=== PATIENT | male | born 1985 | race Caucasian/White ===

== ENCOUNTER 2016-10-20 15:33 | Emergency (ER) | payer OTHER ==
[~2016-10-20] VITALS: Ht 177.8 cm; Wt 82.0 kg
[2016-10-20 15:41] VITALS: BP 124/74; PULSE 87; RESP 18; TEMP 98.3; O2SAT 98
--- NOTE | 2016-10-20 16:26 | PD ---
HPI Chief Complaint: Psychiatric Symptoms Time Seen by Provider: 15:44 Travel History International Travel<30 days: No Contact w/Intl Traveler<30days: No Traveled to known affect area: No History of Present Illness HPI This is a 30-year-old male who presents to the emergency department under a [place] act because he had a violent outburst this morning hitting a window with his right arm. He sustained a laceration to his right forearm, bleeding, severe , constant. He also made some suicidal statements yesterday to his girlfriend. He evidently per the [place] act is supposed to be on psychiatric medications but isn't taking them currently. The patient denies any suicidal or homicidal ideations. He does acknowledge that he got in an argument with his girlfriend this morning and acted out. [facility] Past Medical History Anxiety: Yes Immunizations Current: No Social History Alcohol Use: No Tobacco Use: Yes (PACK A DAY ) Substance Use: Yes (meth ) Allergies-Medications (Allergen,Severity, Reaction): Coded Allergies: No Known Allergies (Verified , 10/20/16) Reported Meds & Prescriptions Reported Meds & Active Scripts Active No Active Prescriptions or Reported Medications Review of Systems Except as stated in HPI: all other systems reviewed are Neg Physical Exam Narrative GENERAL:Well appearing, no acute distress SKIN: 4 cm linear laceration along the volar aspect of the right forearm HEAD: Atraumatic. Normocephalic. EYES: Pupils equal and round. No injection or drainage. ENT: Moist mucous membranes NECK: Trachea midline. CARDIOVASCULAR: Regular rate and rhythm. No murmur appreciated. 2+ right radial pulse and right ulnar pulse with normal capillary refill in the hand. RESPIRATORY: Clear to auscultation. Breath sounds equal bilaterally. GASTROINTESTINAL: Abdomen soft, non-tender, nondistended. MUSCULOSKELETAL: No obvious deformities. NEUROLOGICAL: Awake and alert. No obvious cranial nerve deficits. Sensation and motor intact in the median, ulnar and radial distributions of the right hand. PSYCHIATRIC: Appropriate mood and affect; insight and judgment normal. Data Data Last Documented VS Vital Signs Date Time Temp Pulse Resp B/P Pulse Ox O2 Delivery O2 Flow Rate FiO2 10/20/16 15:41 98.3 87 18 124/74 98 Orders Complete Blood Count With Diff (10/20/16 16:07) Comprehensive Metabolic Panel (10/20/16 16:07) Alcohol (Ethanol) (10/20/16 16:07) Drug Screen, Random Urine (10/20/16 16:07) Forearm (2vws) (10/20/16 ) Labs Laboratory Tests Test 10/20/16 16:00 White Blood Count 5.6 TH/MM3 Red Blood Count 4.95 MIL/MM3 Hemoglobin 15.2 GM/DL Hematocrit 43.9 % Mean Corpuscular Volume 88.7 FL Mean Corpuscular Hemoglobin 30.7 PG Mean Corpuscular Hemoglobin 34.6 % Concent Red Cell Distribution Width 12.5 % Platelet Count 220 TH/MM3 Mean Platelet Volume 8.3 FL Neutrophils (%) (Auto) 49.4 % Lymphocytes (%) (Auto) 36.3 % Monocytes (%) (Auto) 8.6 % Eosinophils (%) (Auto) 5.0 % Basophils (%) (Auto) 0.7 % Neutrophils # (Auto) 2.7 TH/MM3 Lymphocytes # (Auto) 2.0 TH/MM3 Monocytes # (Auto) 0.5 TH/MM3 Eosinophils # (Auto) 0.3 TH/MM3 Basophils # (Auto) 0.0 TH/MM3 CBC Comment DIFF FINAL Differential Comment MDM Medical Decision Making Medical Screen Exam Complete: Yes Emergency Medical Condition: Yes Differential Diagnosis Psychosis, depression, anxiety, personality disorder Narrative Course This is a 30-year-old male who presents to the emergency department having gotten aggressive this morning and broke and a window pane lacerating his right wrist. He is under a [place] act as he evidently has a history of mental illness and is off of his medications. X-ray was obtained to rule out foreign body in the forearm. Wrist laceration will be repaired. He has strong palpable radial and ulnar pulses with a normal neuro exam of the right hand. I think patient is medically clear for psychiatric evaluation. Scripts No Active Prescriptions or Reported Meds Jackie Pimentel MD Oct 20, 2016 16:26
[2016-10-20 16:29] LABS: AUTOMATED NEUTROPHIL # 2.7 TH/MM3 (1.8-7.7); BASOPHIL % 0.7 % (0.0-2.0); EOSINOPHIL # 0.3 TH/MM3 (0-0.4); HEMATOCRIT 43.9 % (39.0-51.0); HEMO FLAGS DIFF FINAL; LYMPH % 36.3 % (9.0-44.0); MEAN CELL VOLUME 88.7 FL (80.0-100.0); MEAN CORPUSCULAR HEMOGLOBIN 30.7 PG (27.0-34.0); MEAN CORPUSCULAR HGB CONC 34.6 % (32.0-36.0); MONO % 8.6 % (0.0-8.0); NEUT % 49.4 % (16.0-70.0); PLATELET COUNT 220 TH/MM3 (150-450); RED BLOOD COUNT 4.95 MIL/MM3 (4.50-5.90); RED CELL DISTRIBUTION WIDTH 12.5 % (11.6-17.2); WHITE BLOOD COUNT 5.6 TH/MM3 (4.0-11.0)
--- NOTE | 2016-10-20 16:48 | RADRPT ---
EXAM DATE/TIME: 10/20/2016 16:17 [facility] COMPARISON: No previous studies available for comparison. INDICATIONS : Punched right forearm through window today. MEDICAL HISTORY : None. SURGICAL HISTORY : None. ENCOUNTER: Initial ACUITY: 1 day PAIN SCORE: 6/10 LOCATION: Right distal back of wrist laceration FINDINGS: Two view examination of the right forearm demonstrates no evidence of fracture or dislocation. Soft t issue injury with swelling is identified the distal form. There is no evidence of radiopaque foreign body. CONCLUSION: Soft tissue swelling without evidence of fracture or radiopaque foreign body. Eladio Elizabeth MD on October 20, 2016 at 16:46 Board Certified Radiologist. This report was verified electronically.
[2016-10-20 17:07] LABS: ALT (GPT) 35 U/L (12-78); ANION GAP 6 MEQ/L (5-15); AST (GOT) 19 U/L (15-37); BICARBONATE 29.8 MEQ/L (21.0-32.0); BLOOD UREA NITROGEN 8 MG/DL (7-18); CHLORIDE 104 MEQ/L (98-107); GLOMERULAR FILTRATION RATE 102 ML/MIN (>89); POTASSIUM 3.9 MEQ/L (3.5-5.1); SODIUM (NA) 140 MEQ/L (136-145)
[2016-10-20 17:09] LABS: ALKALINE PHOSPHATASE 57 U/L (45-117); TOTAL BILIRUBIN ADULT 0.7 MG/DL (0.2-1.0)
[2016-10-20 17:20] LABS: ALCOHOL LESS THAN 3 MG/DL (0-5)
--- NOTE | 2016-10-20 17:47 | PD ---
Physical Exam Time Seen by Provider: 17:46 Narrative I was asked by Dr. Pimentel to repair the laceration to the volar aspect of the right wrist. Data Data Last Documented VS Vital Signs Date Time Temp Pulse Resp B/P Pulse Ox O2 Delivery O2 Flow Rate FiO2 10/20/16 15:41 98.3 87 18 124/74 98 Orders Complete Blood Count With Diff (10/20/16 16:07) Comprehensive Metabolic Panel (10/20/16 16:07) Alcohol (Ethanol) (10/20/16 16:07) Drug Screen, Random Urine (10/20/16 16:07) Forearm (2vws) (10/20/16 ) Psych Screen (10/20/16 16:58) Labs Laboratory Tests Test 10/20/16 10/20/16 16:00 16:30 White Blood Count 5.6 TH/MM3 Red Blood Count 4.95 MIL/MM3 Hemoglobin 15.2 GM/DL Hematocrit 43.9 % Mean Corpuscular Volume 88.7 FL Mean Corpuscular Hemoglobin 30.7 PG Mean Corpuscular Hemoglobin 34.6 % Concent Red Cell Distribution Width 12.5 % Platelet Count 220 TH/MM3 Mean Platelet Volume 8.3 FL Neutrophils (%) (Auto) 49.4 % Lymphocytes (%) (Auto) 36.3 % Monocytes (%) (Auto) 8.6 % Eosinophils (%) (Auto) 5.0 % Basophils (%) (Auto) 0.7 % Neutrophils # (Auto) 2.7 TH/MM3 Lymphocytes # (Auto) 2.0 TH/MM3 Monocytes # (Auto) 0.5 TH/MM3 Eosinophils # (Auto) 0.3 TH/MM3 Basophils # (Auto) 0.0 TH/MM3 CBC Comment DIFF FINAL Differential Comment Sodium Level 140 MEQ/L Potassium Level 3.9 MEQ/L Chloride Level 104 MEQ/L Carbon Dioxide Level 29.8 MEQ/L Anion Gap 6 MEQ/L Blood Urea Nitrogen 8 MG/DL Creatinine 0.88 MG/DL Estimat Glomerular Filtration 102 ML/MIN Rate Random Glucose 80 MG/DL Calcium Level 8.5 MG/DL Total Bilirubin 0.7 MG/DL Aspartate Amino Transf 19 U/L (AST/SGOT) Alanine Aminotransferase 35 U/L (ALT/SGPT) Alkaline Phosphatase 57 U/L Total Protein 7.6 GM/DL Albumin 3.7 GM/DL Ethyl Alcohol Level LESS THAN 3 MG/DL Urine Opiates Screen POS Urine Barbiturates Screen NEG Urine Amphetamines Screen NEG Urine Benzodiazepines Screen NEG Urine Cocaine Screen POS Urine Cannabinoids Screen NEG MDM Supervised Visit with LAURIE: Yes Narrative Course I was asked by Dr. Pimentel to repair the laceration to the volar aspect of the right wrist. See my procedure note for laceration repair. Procedures Procedure Narrative LACERATION LOCATION: Volar aspect of right wrist LENGTH: 4 cm NUMBER OF STITCHES/DANTE: 8 simple interrupted sutures REPAIR: The area of the laceration was prepped with Betadine and sterilely draped. The laceration was infiltrated with 1% lidocaine. The wound was copiously irrigated and explored without evidence of foreign body, tendon injury or neurovascular injury. The wound was closed using 4-0 Prolene. This was a single layer repair. A sterile dressing was applied. The patient was advised to keep the dressing clean and dry. Patient tolerated the procedure well. Scripts No Active Prescriptions or Reported Meds Lidia Dickerson Oct 20, 2016 17:47
--- NOTE | 2016-10-20 18:10 | PD ---
Physical Exam Narrative Patient was seen by ED physician and signed out to me. Data Data Last Documented VS Vital Signs Date Time Temp Pulse Resp B/P Pulse Ox O2 Delivery O2 Flow Rate FiO2 10/20/16 15:41 98.3 87 18 124/74 98 Orders Complete Blood Count With Diff (10/20/16 16:07) Comprehensive Metabolic Panel (10/20/16 16:07) Alcohol (Ethanol) (10/20/16 16:07) Drug Screen, Random Urine (10/20/16 16:07) Forearm (2vws) (10/20/16 ) Psych Screen (10/20/16 16:58) Diet Regular Basic (10/20/16 Dinner) Labs Laboratory Tests Test 10/20/16 10/20/16 16:00 16:30 White Blood Count 5.6 TH/MM3 Red Blood Count 4.95 MIL/MM3 Hemoglobin 15.2 GM/DL Hematocrit 43.9 % Mean Corpuscular Volume 88.7 FL Mean Corpuscular Hemoglobin 30.7 PG Mean Corpuscular Hemoglobin 34.6 % Concent Red Cell Distribution Width 12.5 % Platelet Count 220 TH/MM3 Mean Platelet Volume 8.3 FL Neutrophils (%) (Auto) 49.4 % Lymphocytes (%) (Auto) 36.3 % Monocytes (%) (Auto) 8.6 % Eosinophils (%) (Auto) 5.0 % Basophils (%) (Auto) 0.7 % Neutrophils # (Auto) 2.7 TH/MM3 Lymphocytes # (Auto) 2.0 TH/MM3 Monocytes # (Auto) 0.5 TH/MM3 Eosinophils # (Auto) 0.3 TH/MM3 Basophils # (Auto) 0.0 TH/MM3 CBC Comment DIFF FINAL Differential Comment Sodium Level 140 MEQ/L Potassium Level 3.9 MEQ/L Chloride Level 104 MEQ/L Carbon Dioxide Level 29.8 MEQ/L Anion Gap 6 MEQ/L Blood Urea Nitrogen 8 MG/DL Creatinine 0.88 MG/DL Estimat Glomerular Filtration 102 ML/MIN Rate Random Glucose 80 MG/DL Calcium Level 8.5 MG/DL Total Bilirubin 0.7 MG/DL Aspartate Amino Transf 19 U/L (AST/SGOT) Alanine Aminotransferase 35 U/L (ALT/SGPT) Alkaline Phosphatase 57 U/L Total Protein 7.6 GM/DL Albumin 3.7 GM/DL Ethyl Alcohol Level LESS THAN 3 MG/DL Urine Opiates Screen POS Urine Barbiturates Screen NEG Urine Amphetamines Screen NEG Urine Benzodiazepines Screen NEG Urine Cocaine Screen POS Urine Cannabinoids Screen NEG MDM Supervised Visit with LAURIE: No Narrative Course 6:10 PM. Patient was medically cleared for psychiatric evaluation and disposition. Scripts No Active Prescriptions or Reported Meds Hernán Lewis MD Oct 20, 2016 18:10
[2016-10-20 18:21] VITALS: BP 133/81; PULSE 102; RESP 18; O2SAT 99
[2016-10-20] MEDS ORDERED: IBUPROFEN 800 MG TAB PO ONE (20:15)
[2016-10-20 21:45] VITALS: BP 108/68; PULSE 97; RESP 18; O2SAT 96
[2016-10-21 07:05] VITALS: BP 114/70; PULSE 99; RESP 18; O2SAT 98
--- NOTE | 2016-10-21 10:19 | PD.PSY.CON ---
Provisional Diagnosis Admission Date Mumford I. Adjustment disorder with disturbance of conduct, heroine and cocaine use disorder Mumford II. Unspecified personality disorder Mumford III. No significant medical history History of Present Illness Service Psychiatry Consult Requested By Reason for Consult Aggressive behavior Primary Care Physician No Primary Care Physician HPI The patient is a 30-year-old man, domicile with his parents, unemployed, single, with psychiatric history of heroine and cocaine use disorder , aggressive behavior, who presents to the emergency department under a [place] act because he had a violent outburst this morning hitting a window with his right arm. He sustained a laceration to his right forearm, bleeding, severe, constant. He also made some suicidal statements yesterday to his girlfriend. He evidently per the [place] act is supposed to be on psychiatric medications but isn't taking them currently. The patient denies any suicidal or homicidal ideations. He does acknowledge that he got in an argument with his girlfriend this morning and acted out. Review of Systems Constitutional: DENIES: Diaphoretic episodes, Fatigue, Fever, Weight gain, Weight loss, Chills, Dizziness, Change in appetite, Night Sweats Endocrine: DENIES: Heat/cold intolerance, Polydipsia, Polyuria, Polyphagia Eyes: DENIES: Blurred vision, Diplopia, Eye inflammation, Eye pain, Vision loss , Photosensitivity, Double Vision Ears, nose, mouth, throat: DENIES: Tinnitus, Hearing loss, Vertigo, Nasal discharge, Oral lesions, Throat pain, Hoarseness, Ear Pain, Running Nose, Epistaxis, Sinus Pain, Toothache, Odynophagia Respiratory: DENIES: Apneas, Cough, Snoring, Wheezing, Hemoptysis, Sputum production, Shortness of breath Gastrointestinal: DENIES: Abdominal pain, Black stools, Bloody stools, Constipation, Diarrhea, Nausea, Vomiting, Difficulty Swallowing, Anorexia Musculoskeletal: DENIES: Joint pain, Muscle aches, Stiffness, Joint Swelling, Back pain, Neck pain Integumentary: DENIES: Abnormal pigmentation, Nail changes, Pruritus, Rash Hematologic/lymphatic: DENIES: Bruising, Lymphadenopathy Psychiatric: DENIES: Anxiety, Confusion, Mood changes, Depression, Hallucinations, Agitation, Suicidal Ideation, Homicidal Ideation, Delusions Past Family Social History Coded Allergies: No Known Allergies (Verified , 10/20/16) No Active Prescriptions or Reported Meds Family History Patient denies family secondary history Social History Patient was born and raised in [facility], he lives with his parents, unemployed, single, highest level of education is high school Patient's Strengths (min. 2) Verbal communication Physical Exam Vital Signs Vital Signs Date Time Temp Pulse Resp B/P Pulse Ox O2 Delivery O2 Flow Rate FiO2 10/21/16 07:05 99 18 114/70 98 10/20/16 18:21 Room Air 10/20/16 15:41 98.3 Lab Results Labs Laboratory Tests Test 10/20/16 10/20/16 16:00 16:30 White Blood Count 5.6 TH/MM3 Red Blood Count 4.95 MIL/MM3 Hemoglobin 15.2 GM/DL Hematocrit 43.9 % Mean Corpuscular Volume 88.7 FL Mean Corpuscular Hemoglobin 30.7 PG Mean Corpuscular Hemoglobin 34.6 % Concent Red Cell Distribution Width 12.5 % Platelet Count 220 TH/MM3 Mean Platelet Volume 8.3 FL Neutrophils (%) (Auto) 49.4 % Lymphocytes (%) (Auto) 36.3 % Monocytes (%) (Auto) 8.6 % Eosinophils (%) (Auto) 5.0 % Basophils (%) (Auto) 0.7 % Neutrophils # (Auto) 2.7 TH/MM3 Lymphocytes # (Auto) 2.0 TH/MM3 Monocytes # (Auto) 0.5 TH/MM3 Eosinophils # (Auto) 0.3 TH/MM3 Basophils # (Auto) 0.0 TH/MM3 CBC Comment DIFF FINAL Differential Comment Sodium Level 140 MEQ/L Potassium Level 3.9 MEQ/L Chloride Level 104 MEQ/L Carbon Dioxide Level 29.8 MEQ/L Anion Gap 6 MEQ/L Blood Urea Nitrogen 8 MG/DL Creatinine 0.88 MG/DL Estimat Glomerular Filtration 102 ML/MIN Rate Random Glucose 80 MG/DL Calcium Level 8.5 MG/DL Total Bilirubin 0.7 MG/DL Aspartate Amino Transf 19 U/L (AST/SGOT) Alanine Aminotransferase 35 U/L (ALT/SGPT) Alkaline Phosphatase 57 U/L Total Protein 7.6 GM/DL Albumin 3.7 GM/DL Ethyl Alcohol Level LESS THAN 3 MG/DL Urine Opiates Screen POS Urine Barbiturates Screen NEG Urine Amphetamines Screen NEG Urine Benzodiazepines Screen NEG Urine Cocaine Screen POS Urine Cannabinoids Screen NEG Mental Status Examination Appearance man, age appearing, with bandage his right arm, calm and cooperative Speech: Unremarkable Orientation: x3 Memory: Unremarkable Thought Process: Logical Thought Content: Unremarkable Hallucination Type: None Suicidal Ideation: No Previous Suicide Attempts: No Homicidal Ideation: No Previous Homicide Attempts: No Judgment: WNL Affect: Good Mood: Appropriate Motor Activity: Normal gait Assessment & Plan Problem List: (1) Adjustment disorder with disturbance of conduct Assessment & Plan: On psychiatric evaluation today the patient does not present any acute, concerning for significant evidence of depressive symptoms, anxiety, donny or psychosis. I suicidal or homicidal ideation, he denies visual and auditory hallucinations. During longitudinal observations no aggressive behavior or agitation present. Patient does not meet criteria for psychiatric admission at this moment. [place] act will be lifted. ICD Code: F43.24 Assessment & Plan Estimated LOS: Sloan Londono MD Oct 21, 2016 10:19
== END 2016-10-21 09:28 | disposition home or self-care (01) ==
LOC: NEPD 15:33 → NEPJ 10-21 09:28
DX: S61.511A Laceration without foreign body of right wrist, initial encounter (principal); F41.9 Anxiety disorder, unspecified; F17.200 Nicotine dependence, unspecified, uncomplicated; W25.XXXA Contact with sharp glass, initial encounter
CPT/HCPCS: 12002; 73090; 80053; 80307; 85025